=== PATIENT | female | born 1990 | race Caucasian/White ===

== ENCOUNTER 2021-07-29 18:24 | Emergency (ER) | payer OTHER ==
[~2021-07-29] VITALS: Ht 157.5 cm; Wt 86.0 kg
[2021-07-29 21:24] LABS: BASOPHILS % 0.6 % (0.0-2.0); EOSINOPHILS % 1.7 % (0.0-5.0); HEMATOCRIT. 39.2 % (36.0-48.0); HEMOGLOBIN. 13.6 g/dL (12.0-16.0); LYMPHOCYTES % 19.1 % (20.0-50.0); MEAN CORPUSCULAR HEMOGLOBIN 30.3 pg (28.0-32.0); MEAN CORPUSCULAR VOLUME 87.6 fL (81.0-99.0); MEAN PLATELET VOLUME 8.4 fl (7.4-10.4); MONOCYTES % 8.2 % (2.0-8.0); NEUTROPHILS % 70.4 % (40.0-76.0); PLATELET 316 x1000/uL (130-400); RED BLOOD CELL COUNT 4.47 mill/uL (4.2-5.4)
[2021-07-29 21:27] LABS: CHLORIDE 106 mEq/L (98-107)
[2021-07-29 21:50] LABS: B-HCG QUANTITATIVE 4902 mIU/mL (<3)
[2021-07-29 22:57] LABS: CLARITY URINE CLEAR (CLEAR); COLOR URINE YELLOW (YELLOW); KETONES URINE NEGATIVE (NEGATIVE); LEUKOCYTE ESTERASE URINE TRACE (NEGATIVE); NITRITE URINE NEGATIVE (NEGATIVE); OCCULT BLOOD URINE 1+ (NEGATIVE); PH URINE 6.5 (4.5-8.0); PROTEIN URINE NEGATIVE (NEGATIVE); SPECIFIC GRAVITY URINE 1.009 (1.005-1.030); UROBILINOGEN URINE 0.2 E.U./dL (0.2-1.0)
[2021-07-29 23:49] VITALS: BP 138/78
== END 2021-07-29 23:50 | disposition home or self-care (01) ==
LOC: ER 18:24
DX: O20.0 Threatened abortion (principal); O26.891 Other specified pregnancy related conditions, first trimester; R03.0 Elevated blood-pressure reading, without diagnosis of hypertension; Z3A.01 Less than 8 weeks gestation of pregnancy
CPT/HCPCS: 36415; 76801; 80053; 81003; 81025; 84702; 85025; 86850; 86900; 99284

== ENCOUNTER 2025-06-03 17:27 | Emergency (ER) | payer OTHER, MEDICAID ==
[~2025-06-03] VITALS: Ht 162.6 cm; Wt 84.8 kg
[2025-06-03 17:39] VITALS: TEMP 36.8; O2SAT 99
[2025-06-03] MEDS ORDERED: IBUP-2029 MT (22:40)
[2025-06-03] MEDS ORDERED: LIDO-53 TP (22:40)
[2025-06-03] MEDS ORDERED: ACET-2708 MT (22:40)
[2025-06-03] MEDS ORDERED: CYCL10TA21 MT (22:40)
[2025-06-03] MEDS: LIDOCAINE 5% PATCH TOP SCH (23:12)
[2025-06-03] MEDS: ACETAMINOPHEN 325MG TABLET PO ONE (23:13)
[2025-06-03 23:20] VITALS: BP 121/74; PULSE 81; RESP 18; O2SAT 99
== END 2025-06-03 23:21 | disposition home or self-care (01) ==
LOC: ER 17:27
DX: M54.50 Low back pain, unspecified (principal); Z79.899 Other long term (current) drug therapy; V43.52XA Car driver injured in collision with other type car in traffic accident, initial encounter; Y93.89 Activity, other specified; Y92.410 Unspecified street and highway as the place of occurrence of the external cause; Y99.8 Other external cause status
CPT/HCPCS: 81025; 99283